=== PATIENT | female | born 2000 | race Caucasian/White ===

== ENCOUNTER 2025-06-24 14:30 | Emergency (ER) | payer BC, SELFPAY ==
[2025-06-24 14:45] VITALS: BP 126/87
[2025-06-24 15:15] LABS: HCG, Serum Qualitative Screen Negative
[2025-06-24 15:17] LABS: Urine Character Clear (Clear)
[2025-06-24 15:18] LABS: Hematocrit 39.8 % (37.0-47.0); Hemoglobin 13.4 g/dL (12.0-16.0); Mean Corp Hgb Conc. 33.7 g/dL (33.0-37.0); Mean Corpuscular Volume 81.9 fL (81.0-99.0); Nucleated Red Blood Cells % 0 %; Red Cell Dist. Width 12.3 % (11.5-14.5)
[2025-06-24 15:24] LABS: ALT (SGPT) 36 U/L (0-35); AST (SGOT) 26 U/L (14-36); Albumin 4.8 g/dl (3.5-5.0); Alkaline Phosphatase 78 U/L (38-126); Blood Urea Nitrogen 10 mg/dl (7-17); Calcium 9.6 mg/dl (8.4-10.2); Carbon Dioxide 24 mmol/L (22-30); Chloride 110 mmol/L (98-107); Glucose 86 mg/dl (70-99); Lipase 97 U/L (23-300); Potassium 4.0 mmol/L (3.5-5.1); Sodium 141 mmol/L (135-145); Total Protein 7.9 g/dl (6.3-8.2); eGFR > 60.00
[2025-06-24 15:34] LABS: Urine Red Blood Cell 0-2 /HPF (0-2); Urine Squamous Cell 0-2 /LPF (Few); Urine White Cell 50-60 /HPF (0-5)
[2025-06-24 15:43] LABS: Platelet Count 211 10^3/uL (130-400)
--- NOTE | 2025-06-24 19:05 | ED.GENMED ---
History of Present Illness
General
Chief Complaint: Abdominal Pain
Source: patient
Time Seen by Provider: 06/24/25 18:41
History of Present Illness
History of Present Illness:
Monique is a 24-year-old female with history of external hemorrhoids, history of UTIs, and abdominal pain who presents with 2 weeks of constipation and blood in toilet with straining. She reports that she recently switched from Zepbound to Wegovy and
that has had a huge effect on her bowel movements. Her BMs went from being once daily to more spaced out now and for the past 2 weeks she has needed to strain for long periods of time without much output. She said that in the last few days she has
had bright red blood in the toilet and now lower, stabbing abdominal pain. She just started taking Metamucil today and has not tried any other bowel regimen. She states that she had horrible abdominal pain few years ago and had a colonoscopy done
as she has a family history of colon cancer in the early 50s. Her colonoscopy was unremarkable at that time. Today, in addition to the above she endorses dysuria and fever this morning. She denies pain elsewhere, chills, nausea, vomiting, changes
in diet, or recent infection.
Past History
Past History
ED Past Medical History: Asthma
ED Past Surgical History: None
Social History
Tobacco: Non-smoker
Employment: Employed
Phy Exam
General Physical Exam
General Presentation: well appearing
General age: appears stated age
General Skin: warm
General Habitus: normal
ENT Exam
ENT Exam: EOMI
Cardiovascular Exam
Cardiovascular Exam: regular rate/rhythm and no edema
Pulmonary Exam
Pulmonary Exam: lungs clear and no respiratory distress
Gastrointestinal Exam
Gastrointestinal Exam: normal bowel sounds, soft and tender (TTP at lower abdomen)
Course
Orders/Labs/Results
Orders:
Orders
06/24/25 14:48
Test Result ONCE
06/24/25 14:55
Complete Blood Count/With Diff Urgent
Comprehensive Metabolic Panel Urgent
HCG, Serum Qualitative Screen Urgent
Lipase Urgent
Urinalysis Reflex To Culture Urgent
Date Specimen was Collected: 06/24/25
Time Specimen was Collected: 14:47
Urine Microscopic Reflex Cult Urgent
Urine Culture Urgent
GENO Source: U
Specimen Description:
Date Specimen was Collected: 06/24/25
Time Specimen was Collected: 14:47
06/24/25 19:15
Abdomen Xray - 1 View [CR Abdomen - 1 View] Urgent
Comment:
Reason For Exam: abdominal pain
06/24/25 19:42
Magnesium Citrate [Citroma] 300 ml PO ONCE ONE
Abnormal Lab Results
06/24/25
14:55
MPV 11.0 H fL
(7.4-10.4)
Absolute Neuts (auto) 6.8 H 10^3/uL
(1.4-6.5)
Chloride 110 H mmol/L
(98-107)
ALT 36 H U/L
(0-35)
Ur Occult Blood Reflex 1+ A
(Negative)
Leukocyte Esterase Rfl 2+ A
(Negative)
Urine WBC (Reflex) 50-60 A /HPF
(0-5)
Urine Bacteria (Reflex) Few A
(Negative)
Urine Albumin (Reflex) 2+ A
(Neg - Trace)
06/24/25 14:55
06/24/25 14:55
Vital Signs
Initial and Last Documented VS:
Initial Vital Signs
Temp Pulse Resp BP Pulse Ox
98.0 F 81 16 126/87 98
06/24/25 14:45 06/24/25 14:45 06/24/25 14:45 06/24/25 14:45 06/24/25 14:45
Last Documented Vital Signs
Temp Pulse Resp BP Pulse Ox
98.0 F 81 16 126/87 98
06/24/25 14:45 06/24/25 14:45 06/24/25 14:45 06/24/25 14:45 06/24/25 19:07
MDM/Problems Addressed
Differential Diagnosis Includes:
Constipation
UTI
Medication Side Effect
Appendicitis
MDM/Problems Addressed:
Monique is a 24-year-old female with history of external hemorrhoids, history of UTIs, and abdominal pain who presents with 2 weeks of constipation and blood in toilet with straining.
#Abdominal pain
#Constipation
#External hemorrhoids
She is likely having blood in her stool due to straining
- Abdominal x-ray showing moderate stool burden
- Magnesium Citrate x 1: Send home on Miralax daily
- CBC and CMP unremarkable
#Dysuria
#History of UTIs
- UA positive for UTI
- Start Bactrim 800 mg x 5 days
*Pulse Oximetry
SaO2: 98
Oxygen Mode of Delivery: Room air
Patient hypoxic: no
*Critical Care Note
Total Time (30-74mins, 75-104mins- exclusive of procedures): Not Applicable
ED Attending Note
-
Portions of this chart may have been created with voice recognition software.� Occasional wrong word or��sound alike� substitutions may have occurred due to the inherent limitations of voice recognition software.
Discharge Plan
Departure
Patient Disposition: Home (Routine Discharge)
Date of Disposition: 06/24/25
Time of Disposition: 19:45
Patient with high blood pressure during this ER visit?: No
Condition: Good
Discharge Problem:
Constipation, UTI (urinary tract infection)
Prescriptions:
New
sulfamethoxazole-trimethoprim [Bactrim DS] 800-160 mg tablet
1 tab PO BID 5 Days Qty: 10 0RF
polyethylene glycol 3350 [Miralax] 17 gram/dose powder
4 g PO DAILY 30 Days Qty: 120 0RF
No Action
metaxalone 800 mg tablet
800 mg PO TID PRN (Reason: muscle pain) Qty: 10 0RF
Referrals:
Jose Brandon DO [Family Provider, Family Practice]
Activity Restrictions/Additional Instructions:
For your UTI, take Bactrim 800mg twice daily for 5 days.
For your constipation, take Miralax (mix sachet in water) once daily.
Interventions
Interventions:
*Risk Screen - Suicide Last Done: 06/24/25 14:45
*Neglect/Abuse Screening Last Done: 06/24/25 14:45
WE-Vqjpuo-Yncbxfjksb Assessment Last Done: 06/24/25 17:38
Discharge Date and Time
Print Language: ESTONIAN
[2025-06-24] MEDS: CITROMA 300 ML PO (19:49)
[2025-06-24 19:50] VITALS: BP 106/71
== END 2025-06-24 19:54 | disposition home or self-care (01) ==
LOC: EMR 14:30
PROVIDERS: EMERGENCY PHYSICIAN Emergency Medicine; FAMILY PHYSICIAN Family Medicine
DX: K59.00 Constipation, unspecified (principal); N39.0 Urinary tract infection, site not specified; J45.909 Unspecified asthma, uncomplicated; K64.4 Residual hemorrhoidal skin tags; Z80.0 Family history of malignant neoplasm of digestive organs; Z87.19 Personal history of other diseases of the digestive system; Z87.440 Personal history of urinary (tract) infections
CPT/HCPCS: 99283; 74018; 80053; 81003; 81015; 83690; 84703; 85025; 87086